=== PATIENT | female | born 1990 | race Asian ===

== ENCOUNTER 2017-03-29 14:45 | Emergency (ER) | payer SELFPAY ==
[2017-03-29] MEDS ORDERED: NS 1,000 ML IV ONE (15:43)
--- NOTE | 2017-03-29 15:43 | EDPHY ---
H & P Time Seen by Provider: 03/29/17 15:41 HPI/ROS: Chief complaint. Abdominal pain HPI. 26-year-old female with 2 day history of abdominal pain. Somewhat waxing and waning. It is on the right side. Yesterday it was in the right lower quadrant and today seems somewhat more diffuse on the right side and a little bit higher. No vomiting or diarrhea. No urinary symptoms. She had a subjective fever yesterday. Her pain is worse with movement. No abdominal history or previous abdominal surgery. No chest discomfort or trouble breathing. ROS Constitutional. Fever Eyes. no problems with vision ENT. no sore throat, no nasal drainage Cardiovascular. no chest pain Respiratory. no shortness of breath, no cough Abdominal. Right-sided abdominal pain . no problems urinating MS. no calf pain/swelling, no neck/back pain, no joint pain Skin. no rash Lymph. no swollen glands Neuro. no headache, no dizziness, no difficulty walking or with speech Past Medical/Surgical History: Healthy Social History: , nonsmoker, no alcohol. Patient speaks only Mandarin Smoking Status: Never smoked Physical Exam: General Appearance: Alert well-developed female mild distress vital signs significant for heart rate 104 Eyes: Pupils equal and round no pallor or injection. ENT, Mouth: Mucous membranes are moist. Respiratory: There are no retractions, lungs are clear to auscultation. Cardiovascular: Regular rate and rhythm. Gastrointestinal: Abdomen is soft with tenderness in the right lower quadrant at McBurney's point. Some right mid tenderness as well. Normal bowel sounds. No masses Neurological: Awake and alert, sensory and motor exams grossly normal. Skin: Warm and dry, no rashes. Musculoskeletal: Neck is supple nontender. Extremities symmetrical, full range of motion. Psychiatric: Patient is oriented X 3, there is no agitation. Constitutional: Initial Vital Signs Temperature (C) 36.9 C 03/29/17 15:01 Heart Rate 104 H 03/29/17 15:01 Respiratory Rate 18 03/29/17 15:01 Blood Pressure 111/81 H 03/29/17 15:01 O2 Sat (%) 97 03/29/17 15:01 O2 Delivery Mode Room Air Allergies/Adverse Reactions: No Known Allergies Allergy (Unverified 03/29/17 15:04) Home Medications: Medication Instructions Recorded Cephalexin [Keflex (*)] 500 mg PO TID #21 cap 03/29/17 Medical Decision Making - Diagnostics Imaging Results: CT abdomen and pelvis with IV contrast reviewed by me and discussed with Dr. Dickson shows a normal appendix. It is consistent with right pyelonephritis Procedures: IV normal saline We used [employer] entry level project coordinator ED Course/Re-evaluation: Re-evaluation at 6:00 p.m.. Patient is stable. We again use the [employer] entry level project coordinator to discussed lab results, imaging studies, treatment plan including criteria for return and importance of follow-up and further evaluation. All questions were answered they expressed understanding and agreement Patient is offered admission however she feels well and requests to go home and be treated as an outpatient. Differential Diagnosis: Right-sided abdominal pain. I considered ectopic , urinary tract infection and pyelonephritis. I considered appendicitis as well - Data Points Laboratory Results: Laboratory Results 03/29/17 15:40 03/29/17 15:40 Medications Given: Discontinued Medications Sodium Chloride (Ns) 1,000 mls @ 0 mls/hr IV ONCE ONE PRN Reason: Wide Open Stop: 03/29/17 15:44 Last Admin: 03/29/17 16:00 Dose: 1,000 mls Ceftriaxone Sodium/Dextrose (Rocephin 1 Gm (Premix)) 50 mls @ 100 mls/hr IV EDNOW ONE PRN Reason: Protocol Stop: 03/29/17 17:21 Last Admin: 03/29/17 17:39 Dose: 50 mls Departure - Departure Disposition: Home, Routine, Self-Care Clinical Impression: Acute pyelonephritis Condition: Good Instructions: Kidney Infection (ED) Additional Instructions: Drink plenty of fluids and stay hydrated. Tylenol 650 mg every 4-6 hours as needed for fever. Ibuprofen 400 mg every 6 hours as needed for fever and pain. Cephalexin as antibiotic using 1 pill 3 times daily. Return for worsening pain or vomiting. Recheck in 2 days if not improved Referrals: NONE *PRIMARY CARE P,. [Primary Care Provider] - As per Instructions Melody Parrish MD [Medical Doctor] - As per Instructions Prescriptions: Cephalexin [Keflex (*)] 500 mg PO TID #21 cap
[2017-03-29 16:11] LABS: COLOR YELLOW; LEUKOCYTE ESTERASE,URINE 2+ (NEGATIVE); NITRITE,URINE NEGATIVE (NEGATIVE)
[2017-03-29 16:13] LABS: ANION GAP 12 mEq/L (8-16); CARBON DIOXIDE 23 mEq/l (22-31); CHLORIDE 104 mEq/L (97-110); CREATININE 0.8 mg/dL (0.6-1.0); GLOMERULAR FILTRATION RATE > 60; GLUCOSE 116 mg/dL (70-100); POTASSIUM 3.2 mEq/L (3.5-5.2); SODIUM 139 mEq/L (134-144)
[2017-03-29 16:27] LABS: MUCUS TRACE /lpf (NONE-1+); WBC,URINE 50-182 /hpf (0-3)
[2017-03-29 16:30] LABS: % IMMATURE GRANULYOCYTES 0.6 % (0.0-1.1); ABSOLUTE IMMATURE GRANULOCYTES 0.09 10^3/uL (0.00-0.10); ADD DIFF? NO; ADD MORPH? NO; ADD SCAN? YES; ATYPICAL LYMPHOCYTE FLAG 0 (0-99); FRAGMENT RBC FLAG 0 (0-99); HEMATOCRIT 37.8 % (38.0-47.0); HEMOGLOBIN 12.9 g/dL (12.6-16.3); LEFT SHIFT FLG 50 (0-99); LIPEMIA HEMOLYSIS FLAG 90 (0-99); MEAN CELL HEMOGLOBIN 29.9 pg (27.9-34.1); MEAN CELL HEMOGLOBIN CONCENTR. 34.1 g/dL (32.4-36.7); MEAN CELL VOLUME 87.7 fL (81.5-99.8); MEAN PLATELET VOLUME 10.8 fL (8.7-11.7); PLATELET CLUMPS FLAG 0 (0-99); PLATELET COUNT 161 10^3/uL (150-400); RED BLOOD CELL COUNT 4.31 10^6/uL (4.18-5.33); RED CELL DISTRIBUTION WIDTH 12.3 % (11.5-15.2)
[2017-03-29] MEDS ORDERED: IOPAMIDOL (ISOVUE-300) 100 ML BTL IV ONE (16:47)
[2017-03-29 17:21] LABS: SCAN NEGATIVE
[2017-03-29 17:40] VITALS: BP 111/75; PULSE 93; RESP 16; O2SAT 98
[2017-03-29 18:29] VITALS: TEMP 99
== END 2017-03-29 18:28 | disposition home or self-care (01) ==
DX: N10 Acute pyelonephritis (principal)
CPT/HCPCS: 96374; J0696; Q9967